=== PATIENT | female | born 1970 | race Caucasian/White ===

== ENCOUNTER → 2021-06-19 | Day surgery (SDC) | payer OTHER ==
[~2021-06-19] VITALS: Ht 154.9 cm; Wt 94.8 kg
[~2021-06-19] MED LIST: ATORVASTATIN CA20 MG PO; BENADRYL25 MG PO; OZEMPIC0.25 MG/0. IJ; VITAMIN D3125 MC2 PO
[2021-06-19 11:00] LABS: HCG (URINE) SCREEN NEGATIVE (NEGATIVE)
[2021-06-19 11:30] LABS: BASOPHIL 0.7 % (0-2); EOSINOPHIL 1.8 % (0-5); HCT 47.9 % (37.0-47.0); HGB 15.6 g/dl (12.5-16.0); LYMPHOCYTE 27.9 % (15-48); MCH 29.3 pg (25.0-31.0); MCHC 32.6 g/dL (32.0-36.0); MONOCYTE 7.1 % (0-12); MPV 9.3 fL (6.0-9.5); NEUTROPHIL 62.3 % (41-80); NRBC 0; PLT 301 K/uL (150-400); RBC 5.32 M/uL (4.20-5.40); RDW 14.2 % (11.5-14.0); WBC 8.9 K/uL (4.0-10.5)
[2021-06-19 12:09] LABS: ALBUMIN 3.4 g/dL (3.4-5.0); BILIRUBIN - TOTAL 0.4 mg/dL (0.2-1.0); BUN/CREAT RATIO (CALC) 23.8 RATIO; CREATININE 0.63 mg/dL (0.51-0.95); GLOBULIN (CALCULATION) 4.1 g/dL; POTASSIUM 4.3 mmol/L (3.5-5.1); TOTAL PROTEIN 7.5 g/dL (6.4-8.2)
== END | disposition home or self-care (01) ==
LOC: FAS 04-10 11:15
PROVIDERS: Oral & Maxillofacial Surgery
DX: K02.9 Dental caries, unspecified (principal); K04.7 Periapical abscess without sinus; E11.9 Type 2 diabetes mellitus without complications; E78.5 Hyperlipidemia, unspecified; J45.909 Unspecified asthma, uncomplicated; F17.200 Nicotine dependence, unspecified, uncomplicated; Z88.2 Allergy status to sulfonamides; Z88.5 Allergy status to narcotic agent; Z88.6 Allergy status to analgesic agent; Z88.8 Allergy status to other drugs, medicaments and biological substances; Z79.899 Other long term (current) drug therapy
CPT/HCPCS: D7140 ×5; D7210 ×7; D7310; 36415; 71045; 80053; 84703; 85025; 93005; J2250; J2405; J2704; J7120